=== PATIENT | female | born 1940 | race Caucasian/White ===

== ENCOUNTER 2023-04-03 17:09 | Emergency (ER) | payer MEDICARE ==
[2023-04-03 17:44] LABS: HEMATOCRIT 31.5 % (33.0-47.0); HEMOGLOBIN 10.3 g/dL (12.0-16.0); MEAN CORPUSCULAR HEMOGLOBIN 27.5 pg (26.0-32.0); MEAN CORPUSCULAR HGB CONC 32.7 g/dL (32.0-36.0); MEAN CORPUSCULAR VOLUME 84.2 fL (78.0-93.0); PLATELET COUNT,PLT 120 x10^3/uL (130-400); RED BLOOD CELL COUNT 3.74 x10^6/uL (4.00-5.50); WHITE BLOOD CELL COUNT,WBC 2.7 x10^3/uL (4.0-10.0)
[2023-04-03 17:49] LABS: BAND PERCENT MAN 1 % (0-6); EOSINOPHILS ABSOLUTE MAN 0.2 x10^3/uL (0.0-0.5); EOSINOPHILS PERCENT MAN 8 % (0-4); LYMPHOCYTES % ATYPICAL MANUAL 5 % (0); LYMPHOCYTES ABSOLUTE MAN 0.9 x10^3/uL (1.0-4.8); LYMPHOCYTES PERCENT MAN 27 % (25-50); MONOCYTES ABSOLUTE MAN 0.2 x10^3/uL (0.0-0.8); MONOCYTES PERCENT MAN 8 % (2-11); NEUTROPHILS ABSOLUTE MAN 1.4 x10^3/uL (1.8-7.7); PLATELET COUNT ESTIMATE ADEQUATE; SEG NEUTROPHILS PERCENT MAN 51 % (50-80)
[2023-04-03 17:59] LABS: ALANINE AMINOTRANSFERASE,ALT 22 U/L (14-59); ALBUMIN 3.3 g/dL (3.4-5.0); ALKALINE PHOSPHATASE 124 U/L (46-116); ASPARTATE AMNIOTRANSFERASE,AST 26 U/L (15-37); BILIRUBIN TOTAL 0.5 mg/dL (0.2-1.0); BLOOD UREA NITROGEN,BUN 16 mg/dL (7-18); CALCIUM 8.9 mg/dL (8.5-10.1); CARBON DIOXIDE,CO2 28 mmol/L (21-32); CHLORIDE,CL 97 mmol/L (98-107); CREATININE 0.8 mg/dL (0.55-1.02); GLUCOSE RANDOM 99 mg/dL (70-99); POTASSIUM,K 4.5 mmol/L (3.5-5.1); PROTEIN TOTAL,TP 7.4 g/dL (6.4-8.2); SODIUM,NA 133 mmol/L (136-145)
[2023-04-03 18:00] LABS: ANION GAP 12.5 mmol/L (5-15); ESTIMATED GFR 72 mL/min (>=60)
== END 2023-04-03 18:28 | disposition home or self-care (01) ==
LOC: VM.ED 17:09 → EDBD 17:09 → VM.ED 18:28
DX: R47.01 Aphasia (principal)
CPT/HCPCS: 70450; 80053; 82947; 84484; 85025; 93005; 99285

== ENCOUNTER 2025-01-30 10:00 | Emergency (ER) | payer MEDICARE ==
[2025-01-30 10:16] LABS: APPEARANCE,URINE CLOUDY (CLEAR); GLUCOSE,URINE NEGATIVE (NEGATIVE); OCCULT BLOOD,URINE TRACE-INTACT (NEGATIVE)
[2025-01-30 10:35] LABS: BASOPHILS ABSOLUTE AUTO 0.0 x10^3/uL (0.0-0.2); BASOPHILS PERCENT AUTO 0.5 % (0.2-1.2); EOSINOPHILS ABSOLUTE AUTO 0.1 x10^3/uL (0.0-0.5); EOSINOPHILS PERCENT AUTO 2.9 % (0.0-4.0); IMMATURE GRAN ABSOLUTE AUTO 0.01 x10^3/uL (0.00-0.07); IMMATURE GRAN PERCENT AUTO 0.30 % (0.00-0.43); LYMPHOCYTES ABSOLUTE AUTO 0.7 x10^3/uL (1.0-4.8); LYMPHOCYTES PERCENT AUTO 18.3 % (25.0-50.0); MONOCYTES ABSOLUTE AUTO 0.3 x10^3/uL (0.0-0.8); MONOCYTES PERCENT AUTO 7.9 % (2.0-11.0); NEUTROPHILS ABSOLUTE AUTO 2.7 x10^3/uL (1.8-7.7); NEUTROPHILS PERCENT AUTO 70.1 % (50.0-80.0); PLATELET COUNT,PLT 150 x10^3/uL (130-400); RED BLOOD CELL COUNT 4.15 x10^6/uL (4.00-5.50); WHITE BLOOD CELL COUNT,WBC 3.8 x10^3/uL (4.0-10.0)
[2025-01-30 10:37] LABS: SQUAMOUS EPITHELIAL CELLS,UR FEW /HPF (NOT SEEN)
[2025-01-30 10:56] LABS: A/G RATIO 1.03; ALANINE AMINOTRANSFERASE,ALT 11 U/L (14-59); ASPARTATE AMNIOTRANSFERASE,AST 13 U/L (15-37); BILIRUBIN TOTAL 0.6 mg/dL (0.2-1.0); BLOOD UREA NITROGEN,BUN 15 mg/dL (7-18); CARBON DIOXIDE,CO2 31 mmol/L (21-32); CHLORIDE,CL 98 mmol/L (98-107); CREATININE 0.7 mg/dL (0.55-1.02); GLUCOSE RANDOM 95 mg/dL (70-99); POTASSIUM,K 4.2 mmol/L (3.5-5.1); PROTEIN TOTAL,TP 6.9 g/dL (6.4-8.2); SODIUM,NA 134 mmol/L (136-145)
[2025-01-30 10:58] LABS: ESTIMATED GFR 84 mL/min (>=60)
== END 2025-01-30 11:22 ==
LOC: VM.ED 10:00
DX: N39.0 Urinary tract infection, site not specified (principal); Z88.8 Allergy status to other drugs, medicaments and biological substances; Z79.899 Other long term (current) drug therapy
CPT/HCPCS: 36415; 80053; 81001; 82947; 83605; 85025; 99284

== ENCOUNTER 2025-02-13 17:31 | Inpatient (IN) | payer MEDICARE ==
[2025-02-13] MEDS ORDERED: Ondansetron 4 MG Tab.DIS PO PRN (17:33)
[2025-02-13] MEDS ORDERED: Sodium Chloride 0.9% 10 ML Syringe FLUSH PRN (17:33)
[2025-02-13] MEDS: Iopamidol 755 Mg/ML 100 ML Bottle IVPUSH ONE (19:55)
[2025-02-14 07:04] LABS: BASOPHILS ABSOLUTE AUTO 0.0 x10^3/uL (0.0-0.2); BASOPHILS PERCENT AUTO 0.5 % (0.2-1.2); EOSINOPHILS ABSOLUTE AUTO 0.3 x10^3/uL (0.0-0.5); EOSINOPHILS PERCENT AUTO 13.9 % (0.0-4.0); IMMATURE GRAN ABSOLUTE AUTO 0.03 x10^3/uL (0.00-0.07); IMMATURE GRAN PERCENT AUTO 1.40 % (0.00-0.43); LYMPHOCYTES ABSOLUTE AUTO 0.4 x10^3/uL (1.0-4.8); LYMPHOCYTES PERCENT AUTO 18.5 % (25.0-50.0); MONOCYTES ABSOLUTE AUTO 0.2 x10^3/uL (0.0-0.8); MONOCYTES PERCENT AUTO 8.8 % (2.0-11.0); NEUTROPHILS ABSOLUTE AUTO 1.2 x10^3/uL (1.8-7.7); NEUTROPHILS PERCENT AUTO 56.9 % (50.0-80.0); PLATELET COUNT,PLT 116 x10^3/uL (130-400); RED BLOOD CELL COUNT 3.60 x10^6/uL (4.00-5.50)
[2025-02-14 07:23] LABS: BLOOD UREA NITROGEN,BUN 18.0 mg/dL (7-18); CARBON DIOXIDE,CO2 26.0 mmol/L (21-32); CHLORIDE,CL 104.0 mmol/L (98-107); CREATININE 0.6 mg/dL (0.55-1.02); EST CRCL DRUG DOSING (CG) 47.45 mL/min; GLUCOSE RANDOM 101.0 mg/dL (70-99); POTASSIUM,K 4.0 mmol/L (3.5-5.1); SODIUM,NA 138.0 mmol/L (136-145)
[2025-02-14 07:24] LABS: ESTIMATED GFR 87.0 mL/min (>=60)
[2025-02-14 07:31] LABS: WHITE BLOOD CELL COUNT,WBC 2.2 x10^3/uL (4.0-10.0)
[2025-02-15 06:58] LABS: BASOPHILS ABSOLUTE AUTO 0.0 x10^3/uL (0.0-0.2); BASOPHILS PERCENT AUTO 0.3 % (0.2-1.2); EOSINOPHILS ABSOLUTE AUTO 0.1 x10^3/uL (0.0-0.5); EOSINOPHILS PERCENT AUTO 4.3 % (0.0-4.0); IMMATURE GRAN ABSOLUTE AUTO 0.03 x10^3/uL (0.00-0.07); IMMATURE GRAN PERCENT AUTO 0.90 % (0.00-0.43); LYMPHOCYTES ABSOLUTE AUTO 0.7 x10^3/uL (1.0-4.8); LYMPHOCYTES PERCENT AUTO 21.0 % (25.0-50.0); MONOCYTES ABSOLUTE AUTO 0.3 x10^3/uL (0.0-0.8); MONOCYTES PERCENT AUTO 7.9 % (2.0-11.0); NEUTROPHILS ABSOLUTE AUTO 2.2 x10^3/uL (1.8-7.7); NEUTROPHILS PERCENT AUTO 65.6 % (50.0-80.0); PLATELET COUNT,PLT 132 x10^3/uL (130-400); RED BLOOD CELL COUNT 3.55 x10^6/uL (4.00-5.50); WHITE BLOOD CELL COUNT,WBC 3.3 x10^3/uL (4.0-10.0)
[2025-02-15 07:40] LABS: A/G RATIO 0.97; ALANINE AMINOTRANSFERASE,ALT 13.0 U/L (14-59); ASPARTATE AMNIOTRANSFERASE,AST 18.0 U/L (15-37); BILIRUBIN TOTAL 0.4 mg/dL (0.2-1.0); BLOOD UREA NITROGEN,BUN 22.0 mg/dL (7-18); CARBON DIOXIDE,CO2 26.0 mmol/L (21-32); CHLORIDE,CL 107.0 mmol/L (98-107); CREATININE 0.6 mg/dL (0.55-1.02); EST CRCL DRUG DOSING (CG) 47.45 mL/min; GLUCOSE RANDOM 104.0 mg/dL (70-99); POTASSIUM,K 4.1 mmol/L (3.5-5.1); PROTEIN TOTAL,TP 5.7 g/dL (6.4-8.2); SODIUM,NA 140.0 mmol/L (136-145)
[2025-02-15 07:41] LABS: ESTIMATED GFR 87.0 mL/min (>=60)
[2025-02-16] MEDS: Cholecalciferol (Vitamin D3) 25 MCG Tab PO SCH (08:20)
[2025-02-16] MEDS: Cyanocobalamin (Vitamin B12) 1,000 MCG Tab PO SCH (08:29)
== END 2025-02-16 14:07 | disposition swing bed (61) | DRG 65 ==
LOC: VM.MS 17:31
PROVIDERS: ADMIT Nurse Practitioner Family; ATTEND Nurse Practitioner Family
DX: I63.89 Other cerebral infarction (principal); B01.9 Varicella without complication; E44.1 Mild protein-calorie malnutrition; B02.31 Zoster conjunctivitis; G93.49 Other encephalopathy; Z66 Do not resuscitate; R29.704 NIHSS score 4; R29.714 NIHSS score 14; I10 Essential (primary) hypertension; E78.5 Hyperlipidemia, unspecified; I48.0 Paroxysmal atrial fibrillation; E78.00 Pure hypercholesterolemia, unspecified; R21 Rash and other nonspecific skin eruption; R41.0 Disorientation, unspecified; R47.01 Aphasia; D64.9 Anemia, unspecified; Z68.29 Body mass index [BMI] 29.0-29.9, adult; Z88.8 Allergy status to other drugs, medicaments and biological substances; Z90.49 Acquired absence of other specified parts of digestive tract; Z79.1 Long term (current) use of non-steroidal anti-inflammatories (NSAID); Z79.899 Other long term (current) drug therapy; Z87.440 Personal history of urinary (tract) infections
CPT/HCPCS: 36415; 70496; 70498; 80048; 80053; 85025; 92522-GN; 97110-GP; 97116-GP; 97162-GP; 97165-GO; 97535-GO; A9270-GY; J0133; J7512; Q9967